=== PATIENT | female | born 1985 | race Caucasian/White ===

== ENCOUNTER 2019-06-07 16:04 | Inpatient (IN) ==
[2019-06-07] MEDS ORDERED: KETOROLAC 30 MG/ML VIAL IV STA (16:18)
[2019-06-07] MEDS ORDERED: SODIUM CHLORIDE 0.9% 1000ML 1,000 ML IV ONE (16:18)
[2019-06-07 17:10] LABS: Basophils # (auto) 0.03 K/uL (0-0.2); Basophils % (auto) 0.3 %; Eosinophils % (auto) 1.7 %; Hemoglobin 11.7 g/dL (12.0-16.0); Immature Granulocytes # (auto) 0.04 K/uL (0.00-0.02); Immature Granulocytes % (auto) 0.3 %; Lymphocytes # (auto) 4.89 K/uL (1.2-3.4); Lymphocytes % (auto) 41.7 %; Mean Corpuscular Hgb Conc 34.4 g/dL (32-36); Monocytes % (auto) 4.3 %; Neutrophils # (auto) 6.06 K/uL (1.4-6.5); Neutrophils % (auto) 51.7 %; Platelet Count 262 K/uL (130-400); RDW Coefficient of Variation 13.3 % (11.5-14.5); RDW Standard Deviation 43.5 fL (36.4-46.3); Red Blood Count 3.82 M/uL (4.2-5.4); White Blood Count 11.72 K/uL (4.8-10.8)
[2019-06-07 17:16] LABS: Appearance Urine Cloudy (Clear); Bilirubin Urine Negative (Negative); Blood Urine 3+ (Negative); Color Urine Yellow; Glucose Urine UA Negative (Negative); Ketones Urine Negative (Negative); Leukocyte Esterase Urine 2+ (Negative); Nitrite Urine Negative (Negative); Protein Urine Negative (Negative); Specific Gravity Urine 1.015 (1.000-1.030); Urobilinogen Urine Negative (Negative); pH Urine 5.5 (4.5-7.5)
--- NOTE | 2019-06-07 17:18 | XRay Report ---
KUB CLINICAL HISTORY: Right flank pain. FINDINGS: An AP supine abdominal radiograph is obtained. No prior studies are available for compariso n at the time of dictation. There is a nonobstructed abdominal bowel gas pattern. Cholecystectomy cli ps are seen in the right upper quadrant. An intrauterine device is noted in the pelvis. There are no abnormal abdominal calcifications. The bony structures appear intact. IMPRESSION: No acute abnormality is identified. Electronically signed by: Preet Brantley M.D. 06/07/2019 5:17 PM
[2019-06-07 17:22] LABS: Albumin Level 3.4 gm/dl (3.4-5.0); BUN Creatinine Ratio 23.3 (10-20); Calcium 8.8 mg/dl (8.5-10.1); Creatinine Clr Calc Pharmacy 74.9 ml/min; Est GFR (African American) 118.6; Est GFR (Non-African American) 102.3; Potassium 3.4 mmol/L (3.5-5.1)
[2019-06-07 17:25] LABS: Albumin Globulin Ratio 1.1 (0.9-2); Bilirubin,Total 0.1 mg/dl (0.2-1); Globulin 3.2 gm/dl (2.5-4.0); Total Protein 6.6 gm/dl (6.4-8.2)
[2019-06-07 17:36] LABS: Bacteria Urine 1+ (Negative)
[2019-06-07 17:37] LABS: Calcium Oxalate Crystals Urine Present (None Prsent); Epithelial Cell Urine 20-30 /lpf (0-5)
--- NOTE | 2019-06-07 18:13 | Emergency Department Note ---
Entered by Lesley Barba acting as a scribe for History of Present Illness General Chief complaint: Kidney Stone Stated complaint: KIDNEY STONE Time Seen by Provider: 06/07/19 16:10 Source: patient History of Present Illness Onset (ago): day(s) (11) Location: abdomen Radiation: flank Severity: similar to prior episodes Maximum Pain Intensity: 10 Current Pain Intensity: 10 Quality: + sharp Associated symptoms: + denies other symptoms (denies vaginal bleeding or discharge), + nausea/vomiting and + other (hematauria, decresaed urine output ) The patient is a 33 year old female who presents to the Emergency Room with complaints of sharp left flank pain that started 11 days ago when she was diagnosed with a kidney stone at [facility]. She stated that she had a CT scan done on this date, and she was told she had a 5-8mm kidney stone. She has been trying to pass the stone since then, but is still experiencing pain in her left flank. The patient reports intermittent vomiting for the past week. She also complains of decreased urination with hematuria, but denies burning. She has an extensive history of kidney stones, and stated that this is her . She notes that the pain feels very similar to her prior kidney stones, but she is having trouble passing this one. She was prescribed Vicodin at her last hospital visit, but she finished her medication and is currently not taking any pain medicine. The patient states that she does have chronic diarrhea, and had a colonoscopy done on May 14. She notes that she usually has a high white blood cell count and has a history of gallbladder removal. The patient denies vaginal bleeding or discharge, and reports she has no chance of . She was seen by her associate software developer today and sent here for the emergency department for further evaluation. Home Medications Home Medications Medication Instructions Recorded Confirmed Type levonorgestrel 20 mcg/24 hours (5 1 device IU DIRECTED ea 04/22/19 06/07/19 History yrs) 52 mg intrauterine device loratadine 10 mg capsule 10 mg PO DAILY cap 04/22/19 06/07/19 History topiramate 50 mg tablet 50 mg PO BID tab 04/22/19 06/07/19 History biotin 10,000 mcg capsule 10,000 mcg PO DAILY cap 06/07/19 06/07/19 History cholecalciferol (vitamin D3) 1,000 1,000 units PO DAILY 06/07/19 06/07/19 History unit capsule doxycycline hyclate 50 mg capsule 50 mg PO BID 06/07/19 06/07/19 History finasteride 5 mg tablet See Rx Instructions PO DAILY tab 06/07/19 06/07/19 History potassium chloride ER 10 mEq 10 meq PO BID 06/07/19 06/07/19 History tablet,extended release Allergies Allergy/AdvReac Type Severity Reaction Status Date / Time amoxicillin AdvReac Unknown Unverified 06/07/19 17:15 Past Med/Surg History Medical History Current every day smoker (Chronic) Kidney stones (Chronic) Reactive depression (situational) (Chronic) Migraine Surgical History Hx of cholecystectomy Social History Feels Safe at Home: Yes Smoking Status: Current every day smoker Review of Systems See HPI for pertinent positives & negatives. and A total of 10 systems reviewed and were otherwise negative Physical Exam Vital Signs Vital Signs - 24 hr 06/07/19 16:06 06/07/19 17:57 06/07/19 19:14 Temperature 36.7 C Temperature Source Oral Sepsis Recent Fever Within 48 Hours No Sepsis Action Taken by Nursing No Action Required Pulse Rate 95 H Pulse Rate [Right Finger] 61 70 Pulse Rhythm Regular Pulse Rhythm [Right Finger] Regular Regular Pulse Strength Normal Pulse Strength [Right Finger] Normal Normal Respiratory Rate 20 16 18 Respiratory Effort / Characteristics Non-Labored Spontaneous Non-Labored Spontaneous Non-Labored Respiratory Depth Normal Normal Normal Respiratory Pattern Regular Regular Regular Blood Pressure 120/77 Blood Pressure [Right Arm] 105/58 L 110/68 Blood Pressure Mean 91 Blood Pressure Mean [Right Arm] 73 82 Blood Pressure Position Sitting Blood Pressure Position [Right Arm] Lying Lying Pulse Oximetry 98 100 100 Oxygen Delivery Method Room Air Room Air Room Air Constitutional: Vital signs reviewed. Eyes: Pupils are equal round reactive to light. Conjunctiva are noninjected. ENT: Pharynx is clear without erythema or exudate. Mucous membranes are moist. Neck supple without meningeal signs. Respiratory: Clear to auscultation bilaterally. Breath sounds are equal bilaterally. Cardiovascular: Regular rate and rhythm. No rubs or gallops. GI: Soft, nondistended and nontender. Bowel sounds are present. Musculoskeletal: Mild left CVA tenderness. No peripheral edema. Integumentary: No cyanosis. Neurological: The patient is awake and alert. No focal deficits. Psychiatric: Normal affect. Course 161: Past medical records reviewed. The patient was evaluated in room B03B. A complete history and physical exam was performed. 174: I rechecked on the patient, who stated that she feels much better. She is comfortable with a fem cath for a sterile UA. 180: I received the patient medical records from her visit at [facility]. She had a CT of the abdomen done on May 27, which showed a 5.6 mm proximal left ureteral stone with mild hydronephrosis. 1841: I checked on the patient who is having pain again. The repeat UA shows signs of infection. 1846: I spoke to Dr. Gordillo in urology, who stated that he will evaluate the patient during her hospitalization. No acute intervention. The patient verbally expressed understanding and agreement of the treatment plan. The patient will be evaluated for further treatment. 1940:Dr. Ritchie requested a CT of the abdomen and pelvis. 1944: I talked to the patient about the CT scan, which was requested by inpatient team. She is agreeable. Administered Medications Discontinued Medications Sodium Chloride (Nss 1000ml) 1,000 mls @ 999 mls/hr IV .Q1H1M ONE Stop: 06/07/19 17:18 Last Infusion: 06/07/19 17:58 Dose: 0 mls/hr Documented by: [id number] Admin: 06/07/19 16:53 Dose: 999 mls/hr Documented by: [id number] Ceftriaxone Sodium (Rocephin) 2,000 mg in 70 mls @ 140 mls/hr IV NOW STA Stop: 06/07/19 19:11 Last Infusion: 06/07/19 19:52 Dose: 0 mls/hr Documented by: [id number] Admin: 06/07/19 19:13 Dose: 140 mls/hr Documented by: [id number] Ketorolac Tromethamine (Toradol) 10 mg IV NOW STA Stop: 06/07/19 16:19 Last Admin: 06/07/19 16:53 Dose: 10 mg Documented by: [id number] Morphine Sulfate (Morphine Sulfate) 2 mg IV NOW STA Stop: 06/07/19 18:43 Last Admin: 06/07/19 19:13 Dose: 2 mg Documented by: [id number] Ondansetron HCl (Zofran) 4 mg IV NOW STA Stop: 06/07/19 18:43 Last Admin: 06/07/19 19:13 Dose: 4 mg Documented by: [id number] Medical Decision Making Differential Diagnosis Differential diagnosis includes: renal colic, hydronephrosis, UTI, CARIE, pyelonephritis Medical Records Attestation: I reviewed the patient's medical records. I did perform a limited focused review of portions of the patient's old chart on the electronic medical record. The patient was seen by Dr. Parnell of nephrology today. He discussed the possibility of diuretic to lower urinary calcium. The patient chose to increase her free water intake. Home Medications Current Medication List: was personally reviewed by me Laboratory Data Attestation: I reviewed the patient's lab results. Result diagrams: 06/07/19 16:51 06/07/19 16:51 Lab Results 06/07/19 06/07/19 06/07/19 Range/Units 16:40 16:51 16:51 WBC 11.72 H (4.8-10.8) K/uL RBC 3.82 L (4.2-5.4) M/uL Hgb 11.7 L (12.0-16.0) g/dL Hct 34.0 L (37-47) % MCV 89.0 (80-100) fL MCH 30.6 (25-34) pg MCHC 34.4 (32-36) g/dL RDW Std Deviation 43.5 (36.4-46.3) fL RDW Coeff of Melquiades 13.3 (11.5-14.5) % Plt Count 262 (130-400) K/uL MPV 9.0 (7.4-10.4) fL Immature Gran % (Auto) 0.3 % Neut % (Auto) 51.7 % Lymph % (Auto) 41.7 % Gilliam % (Auto) 4.3 % Eos % (Auto) 1.7 % Baso % (Auto) 0.3 % Immature Gran # (Auto) 0.04 H (0.00-0.02) K/uL Neut # (Auto) 6.06 (1.4-6.5) K/uL Lymph # (Auto) 4.89 H (1.2-3.4) K/uL Gilliam # (Auto) 0.50 (0.11-0.59) K/uL Eos # (Auto) 0.20 (0-0.5) K/uL Baso # (Auto) 0.03 (0-0.2) K/uL Sodium 140 (136-145) mmol/L Potassium 3.4 L (3.5-5.1) mmol/L Chloride 113 H (98-107) mmol/L Carbon Dioxide 21 (21-32) mmol/L Anion Gap 7.0 (3-11) BUN 18 (7-18) mg/dl Creatinine 0.76 (0.6-1.2) mg/dl Est Cr Clr Drug Dosing 74.9 ml/min Est GFR ( Amer) 118.6 Est GFR (Non-Af Amer) 102.3 BUN/Creatinine Ratio 23.3 H (10-20) Glucose 81 (70-99) mg/dl Calcium 8.8 (8.5-10.1) mg/dl Total Bilirubin 0.1 L (0.2-1) mg/dl AST 9 L (15-37) U/L ALT 12 (12-78) U/L Alkaline Phosphatase 74 (45-117) U/L Total Protein 6.6 (6.4-8.2) gm/dl Albumin 3.4 (3.4-5.0) gm/dl Globulin 3.2 (2.5-4.0) gm/dl Albumin/Globulin Ratio 1.1 (0.9-2) Urine Color Yellow Urine Appearance Cloudy A (Clear) Urine pH 5.5 (4.5-7.5) Ur Specific [place] 1.015 (1.000-1.030) Urine Protein Negative (Negative) Urine Glucose (UA) Negative (Negative) Urine Ketones Negative (Negative) Urine Blood 3+ H (Negative) Urine Nitrite Negative (Negative) Urine Bilirubin Negative (Negative) Urine Urobilinogen Negative (Negative) Ur Leukocyte Esterase 2+ H (Negative) Urine WBC (Auto) (0-5) /hpf Urine RBC (Auto) (0-4) /hpf U Hyaline Cast (Auto) (0-5) /lpf U Epithel Cells (Auto) (0-5) /lpf Urine Bacteria (Auto) (Negative) Urine RBC 10-30 H (0-4) /hpf Urine WBC 10-30 H (0-5) /hpf Ur Epithelial Cells 20-30 H (0-5) /lpf Calcium Oxalate Crystal Present A (None Prsent) Urine Bacteria 1+ H (Negative) POC Ur Test (NEG) 06/07/19 06/07/19 Range/Units 17:10 18:03 WBC (4.8-10.8) K/uL RBC (4.2-5.4) M/uL Hgb (12.0-16.0) g/dL Hct (37-47) % MCV (80-100) fL MCH (25-34) pg MCHC (32-36) g/dL RDW Std Deviation (36.4-46.3) fL RDW Coeff of Melquiades (11.5-14.5) % Plt Count (130-400) K/uL MPV (7.4-10.4) fL Immature Gran % (Auto) % Neut % (Auto) % Lymph % (Auto) % Gilliam % (Auto) % Eos % (Auto) % Baso % (Auto) % Immature Gran # (Auto) (0.00-0.02) K/uL Neut # (Auto) (1.4-6.5) K/uL Lymph # (Auto) (1.2-3.4) K/uL Gilliam # (Auto) (0.11-0.59) K/uL Eos # (Auto) (0-0.5) K/uL Baso # (Auto) (0-0.2) K/uL Sodium (136-145) mmol/L Potassium (3.5-5.1) mmol/L Chloride (98-107) mmol/L Carbon Dioxide (21-32) mmol/L Anion Gap (3-11) BUN (7-18) mg/dl Creatinine (0.6-1.2) mg/dl Est Cr Clr Drug Dosing ml/min Est GFR ( Amer) Est GFR (Non-Af Amer) BUN/Creatinine Ratio (10-20) Glucose (70-99) mg/dl Calcium (8.5-10.1) mg/dl Total Bilirubin (0.2-1) mg/dl AST (15-37) U/L ALT (12-78) U/L Alkaline Phosphatase (45-117) U/L Total Protein (6.4-8.2) gm/dl Albumin (3.4-5.0) gm/dl Globulin (2.5-4.0) gm/dl Albumin/Globulin Ratio (0.9-2) Urine Color Yellow Urine Appearance Cloudy A (Clear) Urine pH 5.5 (4.5-7.5) Ur Specific [place] 1.026 (1.000-1.030) Urine Protein 1+ H (Negative) Urine Glucose (UA) Negative (Negative) Urine Ketones 1+ H (Negative) Urine Blood 3+ H (Negative) Urine Nitrite Negative (Negative) Urine Bilirubin Negative (Negative) Urine Urobilinogen Negative (Negative) Ur Leukocyte Esterase 2+ H (Negative) Urine WBC (Auto) >30 H (0-5) /hpf Urine RBC (Auto) >30 H (0-4) /hpf U Hyaline Cast (Auto) 1-5 (0-5) /lpf U Epithel Cells (Auto) 20-30 H (0-5) /lpf Urine Bacteria (Auto) Negative (Negative) Urine RBC (0-4) /hpf Urine WBC (0-5) /hpf Ur Epithelial Cells (0-5) /lpf Calcium Oxalate Crystal (None Prsent) Urine Bacteria (Negative) POC Ur Test NEG (NEG) Imaging Data Radiologist's Impression: Radiology results as stated below per my review and the radiologist's interpretation: CT SCAN OF THE ABDOMEN AND PELVIS WITHOUT IV CONTRAST CLINICAL HISTORY: Left flank pain. COMPARISON STUDY: KUB dated 06/07/2019. TECHNIQUE: CT scan of the abdomen and pelvis is performed from the lung bases to the proximal femora. Images are reviewed in the axial, sagittal, and coronal planes. IV contrast was not administered for this examination. A dose lowering t echnique was utilized adhering to the principles of ALARA. CT DOSE: 277.54 mGycm FINDINGS: Lung bases: The heart is normal in size and without pericardial effusion. The lung bases are clear. Liver: The unenhanced liver is normal in size, contour, and attenuation. There is no intrahepatic biliary ductal dilatation. Gallbladder: Surgically absent noting clips in the gallbladder fossa. Spleen: Normal in size and attenuation. Pancreas: Unremarkable. Adrenal glands: Unremarkable. Kidneys: The unenhanced kidneys are normal in size. There is an 8 mm obstructing calculus identified in the distal left ureter on image #251. This is located approximately 5.5 cm above the bladder. An additional 3 mm calculus is present in the left ureter more proximally at the level of the pelvic inlet seen on image #235. This causes only minimal left-sided hydronephrosis. No additional renal calculi are identified. There is no right-sided hydronephrosis. There is no evidence of contour deforming renal mass lesion. Abdominal vasculature: The abdominal aorta is normal in course and caliber. Bowel: No obstruction is seen. There is fluid noted throughout the colon. There is no significant colonic wall thickening or pericolonic inflammation. There is also fluid within normal caliber small bowel loops. The appendix is well- visualized and normal. Peritoneum: There is no intraperitoneal free air or abdominal ascites. There is a fat-containing umbilical hernia. Lymphadenopathy: None. Pelvic viscera: The bladder is decompressed and grossly unremarkable. The uterus and adnexa are normal as imaged noting an intrauterine device in place. Skeletal structures: A bone island is noted in the right aspect of the pubic symphysis. No lytic or blastic lesions are seen. IMPRESSION: 1. There is an 8 mm obstructing calculus within the distal left ureter as detailed above causing minimal left-sided hydronephrosis. 2. There is an additional 3 mm calculus within the left ureter more proximally. 3. No additional calculi are identified in either kidney. 4. There is fluid present throughout the small bowel and colon. Correlate clinically for evidence of a mild nonspecific enterocolitis. No bowel o bstruction is seen. 5. Additional findings as above. Electronically signed by: Preet Brantley M.D. 06/07/2019 8:35 PM KUB CLINICAL HISTORY: Right flank pain. FINDINGS: An AP supine abdominal radiograph is obtained. No prior studies are available for comparison at the time of dictation. There is a nonobstructed abdominal bowel gas pattern. Cholecystectomy clips are seen in the right upper quadrant. An intrauterine device is noted in the pelvis. There are no abnormal abdominal calcifications. The bony structures appear intact. IMPRESSION: No acute abnormality is identified. Electronically signed by: Preet Brantley M.D. 06/07/2019 5:17 PM Blood Pressure Blood Pressure Findings: Normal blood pressure Blood Pressure Disposition: did not require urgent referral MDM Narrative I did evaluate the patient as noted above. The patient is presenting with left flank pain. She was seen at a different hospital and diagnosed with a kidney stone. She has had multiple kidney stones. She still has intermittent pain and vomiting since diagnosis and has not passed a stone as far she knows. She was sent here by her associate software developer office today. I did obtain records from [facility]. She does have a 5.6 mm left proximal ureteral stone with mild hydronephrosis. IV access was established. I did treat the patient with normal saline IV and Toradol 10 mg IV. I did order and personally reviewed the images of the patient's KUB x-ray as described above. No stone is noted. I did order a urine analysis. She does have signs of infection. Because there were epithelial cells I did recommend repeating it with a straight cath. She was in agreement. Thank cath was performed and another urine was obtained which showed infection. I did treat her with ceftriaxone IV. I did order and review the patient's blood work as noted in the electronic medical record. Her white count slightly elevated. Creatinine is normal. Potassium is 3.4. I did discuss the test results with the patient. She states her pain was improved earlier but then is starting to come back. She was given IV morphine and Zofran. I did rec ommend hospitalization. I did discuss case with the urologist to did not feel she needed an emergent stent. He did agree with hospitalization. I did speak to the hospitalist to recommend that we obtain a CT scan. The patient was amenable to this. I did order a CT of the abdomen and pelvis. I did review the images myself as well as the radiology report as described above. She does have hydronephrosis and to proximal kidney stones on the left side. Impression & Plan Renal colic, UTI (urinary tract infection), Vomiting, Obstructed, uropathy Discharge Plan Visit Data Chief Complaint: Kidney Stone Stated Complaint: KIDNEY STONE ED Provider: Lon Oliver Discharge Problem: Renal colic, UTI (urinary tract infection), Vomiting, Obstructed, uropathy Discharge Instructions Interventions: ED Discharge Assessment Last Done: 06/07/19 22:11 Discharge Problem: UTI (urinary tract infection) Qualifiers: Urinary tract infection type: site unspecified Hematuria presence: with hematuria Qualified Code(s): N39.0 - Urinary tract infection, site not specified Vomiting Qualifiers: Vomiting type: unspecified Vomiting Intractability: intractable Nausea presence: unspecified Qualified Code(s): R11.10 - Vomiting, unspecified The scribe's documentation has been prepared under my direction and personally reviewed by me in its entirety. I confirm that the note above accurately reflects all work, treatment, procedures, and medical decision making performed by me.
[2019-06-07 18:23] LABS: Appearance Urine Cloudy (Clear); Bacteria Urine Automated Negative (Negative); Bilirubin Urine Negative (Negative); Blood Urine 3+ (Negative); Color Urine Yellow; Epithelial Cell Urine Auto 20-30 /lpf (0-5); Glucose Urine UA Negative (Negative); Ketones Urine 1+ (Negative); Leukocyte Esterase Urine 2+ (Negative); Nitrite Urine Negative (Negative); Protein Urine 1+ (Negative); RBC Urine Automated >30 /hpf (0-4); Specific Gravity Urine 1.026 (1.000-1.030); Urobilinogen Urine Negative (Negative); WBC Urine Automated >30 /hpf (0-5); pH Urine 5.5 (4.5-7.5)
[2019-06-07] MEDS ORDERED: MoRPHine SULFATE 2 MG/ML CARP IV STA (18:42)
[2019-06-07] MEDS ORDERED: cefTRIAXone SODIUM 2,000 MG/70 ML BAG IV STA (18:42)
[2019-06-07] MEDS ORDERED: ONDANSETRON INJ 2 MG/ML 2 ML VIAL IV STA (18:42)
--- NOTE | 2019-06-07 20:37 | CT Scan Report ---
CT SCAN OF THE ABDOMEN AND PELVIS WITHOUT IV CONTRAST CLINICAL HISTORY: Left flank pain. COMPARISON STUDY: KUB dated 06/07/2019. TECHNIQUE: CT scan of the abdomen and pelvis is performed from the lung bases to the proximal femora. Images are reviewed in the axial, sagittal, and coronal planes. IV contrast was not administered for this examination. A dose lowering technique was utilized adhering to the principles of ALARA. CT DOSE: 277.54 mGycm FINDINGS: Lung bases: The heart is normal in size and without pericardial effusion. The lung bases are clear. Liver: The unenhanced liver is normal in size, contour, and attenuation. There is no intrahepatic lisa iary ductal dilatation. Gallbladder: Surgically absent noting clips in the gallbladder fossa. Spleen: Normal in size and attenuation. Pancreas: Unremarkable. Adrenal glands: Unremarkable. Kidneys: The unenhanced kidneys are normal in size. There is an 8 mm obstructing calculus identified in the distal left ureter on image #251. This is located approximately 5.5 cm above the bladder. An a dditional 3 mm calculus is present in the left ureter more proximally at the level of the pelvic inle t seen on image #235. This causes only minimal left-sided hydronephrosis. No additional renal calculi are identified. There is no right-sided hydronephrosis. There is no evidence of contour deforming re nal mass lesion. Abdominal vasculature: The abdominal aorta is normal in course and caliber. Bowel: No obstruction is seen. There is fluid noted throughout the colon. There is no significant col onic wall thickening or pericolonic inflammation. There is also fluid within normal caliber small bow el loops. The appendix is well-visualized and normal. Peritoneum: There is no intraperitoneal free air or abdominal ascites. There is a fat-containing umbi lical hernia. Lymphadenopathy: None. Pelvic viscera: The bladder is decompressed and grossly unremarkable. The uterus and adnexa are jessica l as imaged noting an intrauterine device in place. Skeletal structures: A bone island is noted in the right aspect of the pubic symphysis. No lytic or b lastic lesions are seen. IMPRESSION: 1. There is an 8 mm obstructing calculus within the distal left ureter as detailed above causing mini mal left-sided hydronephrosis. 2. There is an additional 3 mm calculus within the left ureter more proximally. 3. No additional calculi are identified in either kidney. 4. There is fluid present throughout the small bowel and colon. Correlate clinically for evidence of a mild nonspecific enterocolitis. No bowel obstruction is seen. 5. Additional findings as above. Electronically signed by: Preet Brantley M.D. 06/07/2019 8:35 PM
[2019-06-07] MEDS ORDERED: ACETAMINOPHEN 500 MG TAB PO SCH (21:45)
[2019-06-07] MEDS ORDERED: TRAMADOL HCL 50 MG TABLET PO SCH (21:45)
--- NOTE | 2019-06-07 22:06 | History & Physical Report ---
Date of Service June 07, 2019 Assessment & Plan (1) Obstructed, uropathy: Ms. Gutierrez is a 33yo female with a PMHx of recurrent calcium oxalate nephrolithiasis, migraines, seasonal allergies and undiagnosed recurrent diarrhea who was admitted for an obstructing kidney stone with hydronephrosis, and possible pyelonephritis. Acute Uropathy/Nephrolithiasis -Pt originally seen at [facility] on 05/25-CT there noted nonobstructing ~5-8mm kidney stone with hydronephrosis -KUB 06/07: unremarkable; no stones noted. -CT 06/07- 8mm obstructing calculus within the distal left ureter, 3mm stone in proximal ureter, minimal left-sided hydronephrosis. Also noted fluid in small b owel and colon. -UA on admission with blood, leukocyte esterase, WBCs. Urine Cx pending. -Pt afebrile, nontachycardic. However, WBC increased >27014 -will make NPO after midnight and consult urology -will start on NSS @150mls/hr -will start treatment with Rocephin for possible pyelonephritis -will continue tamsulosin -will treat pain with scheduled tylenol 1000mg q8h, PRN tramadol 50mg q6h for moderate pain and PRN Dilaudid 0.5mg q3h for severe pain. Hypokalemia -mildly decreased at 3.4 -will treat with one dose of 20mEq PO -continue home Potassium Chloride 20mEq BID daily -continue to monitor and replete as needed Hx of recurrent diarrhea -Pt states she had recent colonoscopy as part of workup -States she has upcoming appointment to followup as an outpt -Hypokalemia likely related -close pcp followup recommended Hx of Migraines -continue home topiramate Hx of environmental allergies -given pt's current mild congestion, continue home loratidine Hx of hair loss -continue home finasteride, biotin Hx of Acne on back -continue home doxycycline 50mg BID Health maintenance -continue home Vit D3 FEN/GI: NSS@150, NPO after midnight CODE STATUS: Full DVT proph: SCDs Dispo: Med/Surg History of Present Illness Primary Care Provider: Zach Phan Ms. Gutierrez is a 33yo with a Hx of recurrent kidney stones who presents to [facility] ED after being sent by her desk pen set assembler Dr. Parnell emergently to be seen by urology. She states she had a kidney stone about May 25 when she presented to [facility] and it was noted on CT. She was sent home with Vicodin, Tamsulosin, Keflex and in the hopes that she would pass it. She states she did not however, and instead of urinating more frequently on the Flomax like she usually would, she noticed that she was actually urinating less. Also noted hematuria over the weekend but no dysuria. Denies ever having fevers, chills, or night sweats. Of note, pt states this will be her 19th stone. States she has had 4 lithotripsies in the past and would like to avoid stents as she believes stents are more painful than having the kidney stone. States she had a stent the first time. PMHx: Recurrent kidney stones, Migraines, Acne on Back, undiagnosed recurrent diarrhea, environmental allergies, Hair loss. 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 1/4ppd smoker for about 13 years, no alcohol or recreational drug use. ED Course: Afebrile, nontachycardic, WBC>65740, KUB:unremarkable, CT showing 8mm obstructing and 3mm nonobstructing stone with mild hydronephrosis, fluid in small bowel and colon. s/p IV morphine 2mgx1 , 15mg IV Toradolx1, 1 dose of Rocephin. Allergies Allergy/AdvReac Type Severity Reaction Status Date / Time amoxicillin AdvReac Unknown Unverified 06/07/19 17:15 Home Medications Home Medications Medication Instructions Recorded Confirmed Type levonorgestrel 20 mcg/24 hours (5 1 device IU DIRECTED ea 04/22/19 06/07/19 History yrs) 52 mg intrauterine device loratadine 10 mg capsule 10 mg PO DAILY cap 04/22/19 06/07/19 History topiramate 50 mg tablet 50 mg PO BID tab 04/22/19 06/07/19 History biotin 10,000 mcg capsule 10,000 mcg PO DAILY cap 06/07/19 06/07/19 History cholecalciferol (vitamin D3) 1,000 1,000 units PO DAILY 06/07/19 06/07/19 History unit capsule doxycycline hyclate 50 mg capsule 50 mg PO BID 06/07/19 06/07/19 History finasteride 5 mg tablet See Rx Instructions PO DAILY tab 06/07/19 06/07/19 Hi story potassium chloride ER 10 mEq 10 meq PO BID 06/07/19 06/07/19 History tablet,extended release Past Med/Surg History Medical History Current every day smoker (Chronic) Kidney stones (Chronic) Reactive depression (situational) (Chronic) Migraine Surgical History Hx of cholecystectomy Social History Preferred Language: Andorran Communication Ability: Effective Field Traffic Investigator Required: No Beliefs That Will Affect Care: None Current Living Situation: Significant Other Current Living Situation Comment: Lives with boyfriend and 3 kids. Other Information That Helps Us Care for You: No Feels Safe at Home: Yes Safety Concerns: Feels Safe At This Time Smoking Status: Current every day smoker Tobacco Type: cigarettes ; Do You Dip or Chew Tobacco: No ; Second Hand Exposure: No ; Tobacco Cessation Education Requested by Patient: No Hx Alcohol Use: No Hx Substance Use: No Review of Systems Constitutional: no fever, no chills and no sweats Eyes: no worsening vision Ear, Nose, Mouth, Throat: + nasal congestion; no sore throat Respiratory: no cough, no dyspnea and no dyspnea on exertion Cardiovascular: no chest pain, no dyspnea, no palpitations, no lightheadedness and no edema Gastrointestinal: + nausea and + diarrhea/loose stools; no vomiting and no co nstipation Genitourinary: + hematuria and + flank pain; no dysuria Musculoskeletal: + back pain Integumentary: + acne Neurologic: no unsteadiness, no tingling, no numbness, no headache(s) and no confusion Physical Exam Constitutional: + thin Eyes: PERRL, conjunctivae normal, anicteric sclerae ENMT: external ear and nose normal, oropharynx normal Neck: normal visual inspection Respiratory: normal respiratory effort, lungs clear to auscultation Auscultation: + diminished lung sounds Cardiovascular: RRR, no murmur, no edema Heart Sounds: normal S1 and normal S2 Extremities: no calf tenderness and no edema Gastrointestinal (Abdomen): Inspection/Auscultation: abdomen normal to inspection Percussion/Palpation: + abdomen tender (in LLQ near groin); no guarding and no hepatosplenomegaly Skin: + rash (acne noted on back) and + hair thinning Neurologic: PERRL, EOMI, accommodation nl, no face palsy, no dysarthria Genitourinary: + CVA tenderness (on left) Results & Data Vital Signs (Past 12 Hours) Vital Signs Temp Pulse Pulse Resp BP BP Pulse Ox 06/07/19 21:40 59 L 93/58 L 98 06/07/19 19:14 70 18 110/68 100 06/07/19 17:57 61 16 105/58 L 100 06/07/19 16:06 36.7 C 95 H 20 120/77 98 Laboratory Results Laboratory Results - last 24 hr 06/07/19 06/07/19 06/07/19 16:40 16:51 16:51 WBC 11.72 H RBC 3.82 L Hgb 11.7 L Hct 34.0 L MCV 89.0 MCH 30.6 MCHC 34.4 RDW Std Deviation 43.5 RDW Coeff of Melquiades 13.3 Plt Count 262 MPV 9.0 Immature Gran % (Auto) 0.3 Neut % (Auto) 51.7 Lymph % (Auto) 41.7 Culberson % (Auto) 4.3 Eos % (Auto) 1.7 Baso % (Auto) 0.3 Immature Gran # (Auto) 0.04 H Neut # (Auto) 6.06 Lymph # (Auto) 4.89 H Culberson # (Auto) 0.50 Eos # (Auto) 0.20 Baso # (Auto) 0.03 Sodium 140 Potassium 3.4 L Chloride 113 H Carbon Dioxide 21 Anion Gap 7.0 BUN 18 Creatinine 0.76 Est Cr Clr Drug Dosing 74.9 Est GFR ( Amer) 118.6 Est GFR (Non-Af Amer) 102.3 BUN/Creatinine Ratio 23.3 H Glucose 81 Calcium 8.8 Total Bilirubin 0.1 L AST 9 L ALT 12 Alkaline Phosphatase 74 Total Protein 6.6 Albumin 3.4 Globulin 3.2 Albumin/Globulin Ratio 1.1 Urine Color Yellow Urine Appearance Cloudy A Urine pH 5.5 Ur Specific Branch 1.015 Urine Protein Negative Urine Glucose (UA) Negative Urine Ketones Negative Urine Blood 3+ H Urine Nitrite Negative Urine Bilirubin Negative Urine Urobilinogen Negative Ur Leukocyte Esterase 2+ H Urine WBC (Auto) Urine RBC (Auto) U Hyaline Cast (Auto) U Epithel Cells (Auto) Urine Bacteria (Auto) Urine RBC 10-30 H Urine WBC 10-30 H Ur Epithelial Cells 20-30 H Calcium Oxalate Crystal Present A Urine Bacteria 1+ H POC Ur Test 06/07/19 06/07/19 17:10 18:03 WBC RBC Hgb Hct MCV MCH MCHC RDW Std Deviation RDW Coeff of Melquiades Plt Count MPV Immature Gran % (Auto) Neut % (Auto) Lymph % (Auto) Culberson % (Auto) Eos % (Auto) Baso % (Auto) Immature Gran # (Auto) Neut # (Auto) Lymph # (Auto) Culberson # (Auto) Eos # (Auto) Baso # (Auto) Sodium Potassium Chloride Carbon Dioxide Anion Gap BUN Creatinine Est Cr Clr Drug Dosing Est GFR ( Amer) Est GFR (Non-Af Amer) BUN/Creatinine Ratio Glucose Calcium Total Bilirubin AST ALT Alkaline Phosphatase Total Protein Albumin Globulin Albumin/Globulin Ratio Urine Color Yellow Urine Appearance Cloudy A Urine pH 5.5 Ur Specific Branch 1.026 Urine Protein 1+ H Urine Glucose (UA) Negative Urine Ketones 1+ H Urine Blood 3+ H Urine Nitrite Negative Urine Bilirubin Negative Urine Urobilinogen Negative Ur Leukocyte Esterase 2+ H Urine WBC (Auto) >30 H Urine RBC (Auto) >30 H U Hyaline Cast (Auto) 1-5 U Epithel Cells (Auto) 20-30 H Urine Bacteria (Auto) Negative Urine RBC Urine WBC Ur Epithelial Cells Calcium Oxalate Crystal Urine Bacteria POC Ur Test NEG Medications Administered Home Medications levonorgestrel 20 mcg/24 hours (5 yrs) 52 mg intrauterine device 1 device IU DIRECTED ea 04/22/19 [History Confirmed 06/07/19] loratadine 10 mg capsule 10 mg PO DAILY cap 04/22/19 [History Confirmed 06/07/19] topiramate 50 mg tablet 50 mg PO BID tab 04/22/19 [History Confirmed 06/07/19] biotin 10,000 mcg capsule 10,000 mcg PO DAILY cap 06/07/19 [History Confirmed 06/07/19] cholecalciferol (vitamin D3) 1,000 unit capsule 1,000 units PO DAILY 06/07/19 [History Confirmed 06/07/19] doxycycline hyclate 50 mg capsule 50 mg PO BID 06/07/19 [History Confirmed 06/07/19] finasteride 5 mg tablet See Rx Instructions PO DAILY tab 06/07/19 [History Confirmed 06/07/19] potassium chloride ER 10 mEq tablet,extended release 10 meq PO BID 06/07/19 [ History Confirmed 06/07/19] Active Medications Doxycycline Hyclate (Vibramycin) 50 mg PO BID NORRIS Stop: 06/18/19 08:59 Finasteride (Proscar) 2.5 mg PO DAILY NORRIS Stop: 07/08/19 08:59 Hydromorphone HCl (Dilaudid) 0.5 mg IV Q3H PRN PRN Reason: Pain Stop: 06/21/19 21:33 Last Admin: 06/07/19 23:38 Dose: 0.5 mg Documented by: Ceftriaxone Sodium 1,000 mg/ (Dextrose) 60 mls @ 100 mls/hr IV Q24H NORRIS; Protocol Stop: 06/16/19 18:35 Sodium Chloride (Nss 1000ml) 1,000 mls @ 150 mls/hr IV .Q6H40M NORRIS Stop: 07/07/19 23:25 Last Admin: 06/07/19 23:38 Dose: 150 mls/hr Documented by: Acetaminophen (Ofirmev) 1,000 mg in 100 mls @ 400 mls/hr IV Q8H PRN PRN Reason: Pain Stop: 07/08/19 01:00 Loratadine (Claritin) 10 mg PO DAILY [facility] Stop: 07/08/19 08:59 Iud~Non-Formulary (Patient's Own Med) 1 ea PV UD PRN PRN Reason: .CONTRACEPTION Stop: 07/07/19 23:44 Potassium Chloride (Klor-Con M10) 10 meq PO BID [facility] Stop: 07/08/19 08:59 Tamsulosin HCl (Flomax) 0.4 mg PO QAM [facility] Stop: 07/08/19 08:59 Topiramate (Topamax) 50 mg PO BID [facility]RIS Stop: 07/08/19 08:59 Tramadol HCl (Ultram) 50 mg PO Q6H PRN PRN Reason: Pain Stop: 07/07/19 23:25 Vitamin D (Vitamin D3) 1,000 units PO DAILY [facility] Stop: 07/08/19 08:59 Supervising Physician Co-Signing Physician Notes Attending addendum: I have physically seen this patient, have supervised the medical residents activities, and agree with the H&P unless as otherwise noted. Assessment and Plan: 8 mm distal left ureteral stone with mild left hydronephrosis- N.p.o. after midnight IV fluids. Ceftriaxone 1 g IV daily. Follow urine culture and sensitivity. Acetaminophen 1 g IV every 8 hours PRN mild pain or temperature. Morphine sulfate 4 mg IV every 3 hours as needed severe pain. Consult urology. Remainder of orders and medications as noted. PG Care Time/CCT Total # of Minutes Spent Total Time Spent with Patient: Total time spent is greater than 50% in coordination of care (as documented) at patient's floor/unit and/or counseling patient: Resident Activity Tracking Resident Involvement: Resident Care Provided Care Provided: Adult Hospital Medicine
[2019-06-07] MEDS ORDERED: POTASSIUM CHLORIDE 20 MEQ TABCR PO STA (23:26)
[2019-06-07] MEDS ORDERED: TRAMADOL HCL 50 MG TABLET PO PRN (23:26)
[2019-06-07] MEDS: SODIUM CHLORIDE 0.9% 1000ML 1,000 ML IV SCH (23:38)
[2019-06-07] MEDS: HYDROmorphone INJ 0.5 MG/0.5 ML SYR IV PRN (23:38)
[2019-06-07] MEDS ORDERED: IUD PV PRN (23:45)
[2019-06-08] MEDS ORDERED: ACETAMINOPHEN 1,000 MG/100 ML VIAL IV PRN (01:01)
[2019-06-08] MEDS: HYDROmorphone INJ 0.5 MG/0.5 ML SYR IV PRN ×6 (02:33→22:06)
[2019-06-08] MEDS: SODIUM CHLORIDE 0.9% 1000ML 1,000 ML IV SCH ×3 (05:27→19:06)
[2019-06-08] MEDS: POTASSIUM CHLORIDE 10 MEQ TABCR PO SCH ×2 (08:14→20:54)
[2019-06-08] MEDS: DOXYCYCLINE HYCLATE 50 MG CAP PO SCH ×2 (08:14→20:54)
[2019-06-08] MEDS: LORATADINE 10 MG TAB PO SCH (08:14)
[2019-06-08] MEDS: TAMSULOSIN HCL 0.4 MG CAP PO SCH (08:14)
[2019-06-08] MEDS: CHOLECALCIFEROL 1,000 UNITS TAB PO SCH (08:14)
[2019-06-08] MEDS: FINASTERIDE 5 MG TAB PO SCH (08:14)
[2019-06-08] MEDS: TOPIRAMATE 50 MG TAB PO SCH ×2 (08:14→20:55)
[2019-06-08] MEDS ORDERED: NON-FORMULARY MEDICATION (Biotin 10,000 MCG) PO SCH (09:00)
--- NOTE | 2019-06-08 09:26 | Family Medicine Progress Note ---
Date of Service June 08, 2019 Assessment & Plan (1) Obstructed, uropathy: Ms. Gutierrez is a 33yo female with a PMHx of recurrent calcium oxalate nephrolithiasis, migraines, seasonal allergies and undiagnosed recurrent diarrhea who was admitted for an obstructing kidney stone with hydronephrosis, and possible pyelonephritis. Nephrolithiasis - CT abdomen 06/07: 8mm obstructing calculus within the distal left ureter, 3mm stone in proximal ureter, minimal left-sided hydronephrosis. Also noted fluid in small bowel and colon. Pt originally seen at [facility] on 05/25-CT there noted nonobstructing ~5-8mm kidney stone with hydronephrosis. - UA on admission with blood, leukocyte esterase, WBCs. Urine Cx pending. - Pt with leukocytosis to 11,000, not febrile, no tachycardia or tachypnea. BP hypotensive. - Currently NPO; it is possible that she may be able to pass the stone on her own with fluids, pain mgmt, and Flomax. Check KUB this afternoon. If stone has not moved, Urology plan for Cysto and Uscope tomorrow morning. - NSS @150mls/hr - Rocephin for possible pyelonephritis pending UCx - Continue tamsulosin until KUB this afternoon. - Current pain medication regimen: scheduled Tylenol 1000mg Q8H, Toradol 15mg IVQ6H PRN, Dilaudid 0.5mg IV Q3H PRN Hypokalemia - Mildly decreased at 3.4 on arrival. - Treated with one dose Potassium 20mEq PO, K now 3.6 on recheck. - Continue home Potassium Chloride 20mEq BID daily. - BMP in AM. Hx of recurrent diarrhea - Pt states she had recent colonoscopy as part of workup. - States she has upcoming appointment to followup as an outpatient. - Hypokalemia likely related to volume loss through diarrhea. Hypotension could be explained by this as well. - to followup with primary doctor and GI following discharge. Hx of Migraines - Continue home topiramate. Hx of environmental allergies - Continue home Loratidine. Hx of hair loss - Continue home Finasteride, Biotin. Hx of Acne - Continue home Doxycycline 50mg BID. Health maintenance - Continue home Vit D3. FEN/GI: NSS@150, NPO pending afternoon KUB CODE STATUS: Full Code DVT proph: SCDs Dispo: Med/Surg (2) Hypokalemia: (3) Chronic diarrhea: (4) Migraine: Supervising Physician Co-Signing Physician Notes Resident Physician Supervision Note: I independently interviewed and examined the patient and verified the pena history and physical, reviewed labs and image studies, discussed the case with the resident Dr. Dejesus and agree with the findings and care plan. Subjective No acute events since admission. Pt reports that she is in 8/10 pain so had nursing give her her PRN medications. Has a robust history of kidney stones and reports that this feels exactly the same as other incidences of kidney stones. No fevers or chills, no dysuria hematuria urinary frequency or urgency. Does report diarrhea but this is chronic for her and she follows with Dr. Grossman regarding this. Review of Systems Constitutional: no fever and no chills Respiratory: no cough, no dyspnea and no wheezing Cardiovascular: no chest pain, no palpitations and no edema Gastrointestinal: + abdominal pain (lower abdomen pain radiates from back.) and + diarrhea/loose stools; no nausea, no vomiting and no constipation Genitourinary: no dysuria, no urinary frequency, no urinary urgency and no hematuria left CVA pain that sometimes radiates around left side to the left inguinal area, 8/10 when pain medication wears off. Physical Exam Constitutional: WD/WN, vitals as above Respiratory: normal respiratory effort, lungs clear to auscultation Cardiovascular: RRR, no murmur, no edema Gastrointestinal (Abdomen): normal bowel sounds, soft, nontender, no hepatosplenomegaly Skin: no rashes, warm and dry Psychiatric: A+Ox3, euthymic affect Genitourinary: CVA tenderness left side, no suprapubic tenderness Results & Data Vital Signs (Past 12 Hours) Vital Signs Temp Pulse Resp BP Pulse Ox 06/08/19 07:07 36.7 C 71 16 94/59 L 99 06/07/19 23:25 36.3 C L 65 16 103/68 100 06/07/19 21:40 59 L 93/58 L 98 PG Care Time/CCT Total # of Minutes Spent Total Time Spent with Patient: Total time spent is greater than 50% in coordination of care (as documented) at patient's floor/unit and/or counseling patient: Resident Activity Tracking Resident Involvement: Resident Care Provided Care Provided: Adult Hospital Medicine (1) Migraine Intractability: not intractable Migraine type: unspecified Status migrainosus presence: without status migrainosus Qualified Code(s): G43.909 - Migraine, unspecified, not intractable, without status migrainosus
[2019-06-08 09:33] LABS: Basophils # (auto) 0.02 K/uL (0-0.2); Basophils % (auto) 0.2 %; Eosinophils # (auto) 0.18 K/uL (0-0.5); Eosinophils % (auto) 1.9 %; Hematocrit (blood only) 31.7 % (37-47); Hemoglobin 10.7 g/dL (12.0-16.0); Immature Granulocytes # (auto) 0.03 K/uL (0.00-0.02); Immature Granulocytes % (auto) 0.3 %; Lymphocytes # (auto) 4.21 K/uL (1.2-3.4); Lymphocytes % (auto) 44.9 %; Mean Corpuscular Hgb Conc 33.8 g/dL (32-36); Mean Corpuscular Volume 89.5 fL (80-100); Monocytes # (auto) 0.43 K/uL (0.11-0.59); Monocytes % (auto) 4.6 %; Neutrophils % (auto) 48.1 %; Platelet Count 229 K/uL (130-400); RDW Coefficient of Variation 13.3 % (11.5-14.5); RDW Standard Deviation 43.9 fL (36.4-46.3); Red Blood Count 3.54 M/uL (4.2-5.4); White Blood Count 9.37 K/uL (4.8-10.8)
--- NOTE | 2019-06-08 09:49 | Urology Consultation ---
Date of Consultation June 08, 2019 Assessment & Plan (1) Kidney stones: Distal ureteral stone. Logan. Intermit Pain. Its possible that she may be able to pass the stone on her own with fluids, pain mgmt, and Flomax. Check KUB this afternoon. If stone has not moved, will plan for Cysto and Uscope tomorrow morning. (2) Renal colic: History of Present Illness Attending Physician: Ashley Schwartz MD 33yo with a Hx of recurrent kidney stones who presents to [facility] ED after being sent by her ophthalmic technician Dr. Parnell emergently to be seen by urology. She states she had a kidney stone about May 25 when she presented to [facility] ED and it was noted on CT. She was sent home with Vicodin, Tamsulosin, Keflex and in the hopes that she would pass it. She states she did not however, and instead of urinating more frequently on the Flomax like she usually would, she noticed that she was actually urinating less. Also noted hematuria over the weekend but no dysuria. Denies ever having fevers, chills, or night sweats. Of note, pt states this will be her 19th stone. States she has had 4 lithotripsies in the past and would like to avoid stents as she believes stents are more painful than having the kidney stone. States she had a stent the first time. She currently has pain. Comes and goes. Radiates towards groin. CT Scan: 1. There is an 8 mm obstructing calculus within the distal left ureter as det abebe above causing minimal left-sided hydronephrosis. 2. There is an additional 3 mm calculus within the left ureter more proximally. Allergies Allergy/AdvReac Type Severity Reaction Status Date / Time amoxicillin AdvReac Unknown Unverified 06/07/19 17:15 Home Medications Home Medications Medication Instructions Recorded Confirmed Type levonorgestrel 20 mcg/24 hours (5 1 device IU DIRECTED ea 04/22/19 06/07/19 History yrs) 52 mg intrauterine device loratadine 10 mg capsule 10 mg PO DAILY cap 04/22/19 06/07/19 History topiramate 50 mg tablet 50 mg PO BID tab 04/22/19 06/07/19 History biotin 10,000 mcg capsule 10,000 mcg PO DAILY cap 06/07/19 06/07/19 History cholecalciferol (vitamin D3) 1,000 1,000 units PO DAILY 06/07/19 06/07/19 History unit capsule doxycycline hyclate 50 mg capsule 50 mg PO BID 06/07/19 06/07/19 History finasteride 5 mg tablet See Rx Instructions PO DAILY tab 06/07/19 06/07/19 History potassium chloride ER 10 mEq 10 meq PO BID 06/07/19 06/07/19 History tablet,extended release Patient History Medical History Current every day smoker (Chronic) Kidney stones (Chronic) Reactive depression (situational) (Chronic) Migraine Surgical History Hx of cholecystectomy Social History Preferred Language: Tuvaluan Communication Ability: Effective Feed Blender Required: No Beliefs That Will Affect Care: None Current Living Situation: Significant Other Current Living Situation Comment: Lives with boyfriend and 3 kids. Other Information That Helps Us Care for You: No Feels Safe at Home: Yes Safety Concerns: Feels Safe At This Time Smoking Status: Current every day smoker Tobacco Type: cigarettes ; Do You Dip or Chew Tobacco: No ; Second Hand Exposure: No ; Tobacco Cessation Education Requested by Patient: No Hx Alcohol Use: No Hx Substance Use: No Review of Systems Review of Systems: All systems reviewed & are unremarkable except as noted in HPI & below Physical Exam Constitutional: WD/WN, vitals as above Eyes: PERRL, conjunctivae normal, anicteric sclerae Respiratory: normal respiratory effort, lungs clear to auscultation Cardiovascular: RRR, no murmur, no edema Musculoskeletal: no cyanosis or clubbing, extremities motor strength 5/5 Skin: no rashes, warm and dry Psychiatric: A+Ox3, euthymic affect Genitourinary: no vaginal lesions, no adnexal mass Lymphatic: no cervical or axillary lymphadenopathy Results & Data Vital Signs (Past 12 Hours) Vital Signs Temp Pulse Resp BP Pulse Ox 06/08/19 07:07 36.7 C 71 16 94/59 L 99 06/07/19 23:25 36.3 C L 65 16 103/68 100
[2019-06-08 10:07] LABS: BUN Creatinine Ratio 21.6 (10-20); Calcium 8.2 mg/dl (8.5-10.1); Creatinine Clr Calc Pharmacy 96.5 ml/min; Est GFR (African American) 138.6; Est GFR (Non-African American) 119.6; Potassium 3.6 mmol/L (3.5-5.1)
[2019-06-08] MEDS ORDERED: KETOROLAC TROMETHAMINE 15 MG/ML VIAL IV PRN (11:01)
[2019-06-08] MEDS ORDERED: FAMOTIDINE 20 MG in SYRINGE 3 ML IV SCH (11:15)
[2019-06-08] MEDS ORDERED: FAMOTIDINE 20 MG in SYRINGE 3 ML IV PRN (11:45)
[2019-06-08] MEDS: FAMOTIDINE 20 MG in SYRINGE 3 ML IV SCH ×2 (12:01→20:56)
--- NOTE | 2019-06-08 15:15 | XRay Report ---
XR KUB/Abdomen 1 view CLINICAL HISTORY: Ureteral calculus COMPARISON STUDY: CT scan dated 06/07/2019, KUB dated 05/07/2019 FINDINGS: There are surgical clips within the right upper quadrant consistent with a prior cholecyste ctomy. There is no pathologic bowel dilatation. An IUD is visualized. No urinary tract calculi are vi sualized on conventional radiographic imaging. The ureteral calculi described on the recent CT scan, are not visualized. IMPRESSION: 1. Nonvisualization of the recently described left ureteral calculi (as visualized on a recent CT sca n, but nonvisible on a recent KUB) Electronically signed by: Octaviano Huerta M.D. 06/08/2019 3:13 PM
[2019-06-08] MEDS ORDERED: cefTRIAXone SODIUM 1,000 MG in DEXTROSE 5% 50 ML IV SCH (18:00)
[2019-06-09] MEDS: SODIUM CHLORIDE 0.9% 1000ML 1,000 ML IV SCH ×2 (01:58→10:49)
[2019-06-09] MEDS: HYDROmorphone INJ 0.5 MG/0.5 ML SYR IV PRN (02:04)
[2019-06-09 07:32] LABS: Basophils # (auto) 0.02 K/uL (0-0.2); Basophils % (auto) 0.2 %; Eosinophils # (auto) 0.21 K/uL (0-0.5); Eosinophils % (auto) 2.4 %; Hematocrit (blood only) 30.6 % (37-47); Hemoglobin 10.3 g/dL (12.0-16.0); Immature Granulocytes # (auto) 0.02 K/uL (0.00-0.02); Immature Granulocytes % (auto) 0.2 %; Lymphocytes # (auto) 3.39 K/uL (1.2-3.4); Lymphocytes % (auto) 38.3 %; Mean Corpuscular Hgb Conc 33.7 g/dL (32-36); Mean Platelet Volume 9.1 fL (7.4-10.4); Monocytes # (auto) 0.46 K/uL (0.11-0.59); Monocytes % (auto) 5.2 %; Neutrophils # (auto) 4.74 K/uL (1.4-6.5); Neutrophils % (auto) 53.7 %; Platelet Count 229 K/uL (130-400); RDW Coefficient of Variation 13.3 % (11.5-14.5); RDW Standard Deviation 43.7 fL (36.4-46.3); White Blood Count 8.84 K/uL (4.8-10.8)
[2019-06-09] MEDS ORDERED: DEXAMETHASONE SOD INJ 4 MG/ML VIAL ONE (07:50)
[2019-06-09] MEDS ORDERED: LIDOCAINE HCL 2% 2 ML VIAL/AMP(20MG/ML) INFIL ONE (07:50)
[2019-06-09] MEDS ORDERED: PROPOFOL IV EMULSION 10 MG/ML 20 ML VIAL IV ONE (07:50)
[2019-06-09] MEDS ORDERED: ONDANSETRON INJ 2 MG/ML 2 ML VIAL ONE (07:50)
[2019-06-09] MEDS ORDERED: fentaNYL citrate 100 MCG/2 ML VIAL ONE (07:51)
[2019-06-09] MEDS ORDERED: MIDAZOLAM HCL 1 MG/ML 2ML VIAL ONE (07:51)
[2019-06-09] MEDS: FINASTERIDE 5 MG TAB PO SCH (07:59)
[2019-06-09] MEDS: POTASSIUM CHLORIDE 10 MEQ TABCR PO SCH (07:59)
[2019-06-09] MEDS: LORATADINE 10 MG TAB PO SCH (07:59)
[2019-06-09] MEDS: TAMSULOSIN HCL 0.4 MG CAP PO SCH (07:59)
[2019-06-09] MEDS: FAMOTIDINE 20 MG in SYRINGE 3 ML IV SCH (07:59)
[2019-06-09] MEDS: TOPIRAMATE 50 MG TAB PO SCH (07:59)
[2019-06-09] MEDS: CHOLECALCIFEROL 1,000 UNITS TAB PO SCH (08:00)
[2019-06-09] MEDS: DOXYCYCLINE HYCLATE 50 MG CAP PO SCH (08:00)
[2019-06-09 08:14] LABS: BUN Creatinine Ratio 15.7 (10-20); Creatinine Clr Calc Pharmacy 96.5 ml/min; Est GFR (African American) 138.6; Est GFR (Non-African American) 119.6; Potassium 4.3 mmol/L (3.5-5.1)
[2019-06-09] MEDS ORDERED: ATROPINE SULFATE 0.1 MG/ML 10ML SYR IV PRN (08:16)
[2019-06-09] MEDS ORDERED: ePHEDrine sulfate 50 MG/ML AMP IV PRN (08:16)
--- NOTE | 2019-06-09 08:16 | Anesthesiology Consultation ---
Date of Service June 09, 2019 Assessment & Plan (1) Encounter for pre-operative examination: Chart Review Chart Review: Acceptable Risk for Surgery and Patient NOT seen in Pre Admission Testing Consults Requested none History Surgery Operation Date: 06/09/19 09:00 Proposed Procedures p Cystoscopy, Right Ureteroscopy, Laser Lithotripsy Holmium, Stent Placement - Lon Gordillo MD Height/Weight Height: 5 ft Weight: 51.3 kg Allergies Allergy/AdvReac Type Severity Reaction Status Date / Time amoxicillin AdvReac Unknown Unverified 06/07/19 17:15 Medications Home Medications Medication Instructions Recorded Confirmed Last Taken levonorgestrel 20 mcg/24 hours (5 1 device IU DIRECTED ea 04/22/19 06/07/19 Unknown yrs) 52 mg intrauterine device loratadine 10 mg capsule 10 mg PO DAILY cap 04/22/19 06/07/19 Unknown topiramate 50 mg tablet 50 mg PO BID tab 04/22/19 06/07/19 Unknown biotin 10,000 mcg capsule 10,000 mcg PO DAILY cap 06/07/19 06/07/19 Unknown cholecalciferol (vitamin D3) 1,000 1,000 units PO DAILY 06/07/19 06/07/19 Unknown unit capsule doxycycline hyclate 50 mg capsule 50 mg PO BID 06/07/19 06/07/19 Unknown finasteride 5 mg tablet See Rx Instructions PO DAILY tab 06/07/19 06/07/19 Unknown potassium chloride ER 10 mEq 10 meq PO BID 06/07/19 06/07/19 Unknown tablet,extended release Active Medications Generic Name Dose Route Start Last Admin Trade Name Freq PRN Reason Stop Dose Admin Doxycycline Hyclate 50 mg 06/08/19 09:00 06/09/19 08:00 Vibramycin PO 06/18/19 08:59 Not Given BID NORRIS Finasteride 2.5 mg 06/08/19 09:00 06/09/19 07:59 Proscar PO 07/08/19 08:59 Not Given DAILY NORRIS Hydromorphone HCl 0.5 mg 06/07/19 21:34 06/09/19 02:04 Dilaudid IV 06/21/19 21:33 0.5 mg Q3H PRN Administration Pain Ceftriaxone Sodium 1,000 mg/ 60 mls @ 100 mls/hr 06/08/19 18:00 06/08/19 18:15 Dextrose IV 06/16/19 18:35 Infused Q24H NORRIS Infusion Protocol Sodium Chloride 1,000 mls @ 150 mls/hr 06/07/19 23:26 06/09/19 07:55 Nss 1000ml IV 07/07/19 23:25 0 mls/hr .Q6H40M NORRIS Infusion Famotidine 20 mg/ Syringe 5 mls @ 2.5 mls/min 06/08/19 12:00 06/09/19 07:59 IV 07/08/19 11:59 Not Given BID NORRIS Ketorolac Tromethamine 15 mg 06/08/19 11:01 06/08/19 12:01 Toradol IV 06/13/19 11:00 15 mg Q6H PRN Administration Pain Loratadine 10 mg 06/08/19 09:00 06/09/19 07:59 Claritin PO 07/08/19 08:59 Not Given DAILY NORRIS Potassium Chloride 10 meq 06/08/19 09:00 06/09/19 07:59 Klor-Con M10 PO 07/08/19 08:59 Not Given BID NORRIS Tamsulosin HCl 0.4 mg 06/08/19 09:00 06/09/19 07:59 Flomax PO 07/08/19 08:59 Not Given QAM NORRIS Topiramate 50 mg 06/08/19 09:00 06/09/19 07:59 Topamax PO 07/08/19 08:59 Not Given BID NORRIS Vitamin D 1,000 units 06/08/19 09:00 06/09/19 08:00 Vitamin D3 PO 07/08/19 08:59 Not Given DAILY NORRIS NPO Date Last Intake of Fluids: 06/08/19 Time Last Intake of Fluids: 23:30 Date Last Intake of Solids: 06/08/19 Time Last Intake of Solids: 21:00 Past Medical History Medical History Current every day smoker (Chronic) Kidney stones (Chronic) Reactive depression (situational) (Chronic) Migraine Past Surgical History Surgical History Hx of cholecystectomy Social History Smoking Status: Current every day smoker tobacco type: cigarettes Do You Dip or Chew Tobacco: No Hx Alcohol Use: No Hx Substance Use: No Physical Exam Vital Signs Last Vital Signs Temp 36.5 C 06/09/19 07:25 Pulse 58 L 06/09/19 07:25 Resp 16 06/09/19 07:25 BP 108/71 06/09/19 07:25 Pulse Ox 99 06/09/19 07:25 Testing Laboratory Results 06/09/19 06:45 06/09/19 06:45 Urine Color Yellow 06/07/19 18:03 Urine Appearance Cloudy (Clear) A 06/07/19 18:03 Urine pH 5.5 (4.5-7.5) 06/07/19 18:03 Ur Specific [place] 1.026 (1.000-1.030) 06/07/19 18:03 Urine Protein 1+ (Negative) H 06/07/19 18:03 Urine Glucose (UA) Negative (Negative) 06/07/19 18:03 Urine Ketones 1+ (Negative) H 06/07/19 18:03 Urine Nitrite Negative (Negative) 06/07/19 18:03 Ur Leukocyte Esterase 2+ (Negative) H 06/07/19 18:03 Urine WBC (Auto) >30 /hpf (0-5) H 06/07/19 18:03 Urine RBC (Auto) >30 /hpf (0-4) H 06/07/19 18:03 U Hyaline Cast (Auto) 1-5 /lpf (0-5) 06/07/19 18:03 U Epithel Cells (Auto) 20-30 /lpf (0-5) H 06/07/19 18:03 Urine Bacteria (Auto) Negative (Negative) 06/07/19 18:03 Urine RBC 10-30 /hpf (0-4) H 06/07/19 16:40 Urine WBC 10-30 /hpf (0-5) H 06/07/19 16:40 Ur Epithelial Cells 20-30 /lpf (0-5) H 06/07/19 16:40 06/07/19 16:40 Urine Culture - Preliminary Urine,Clean Catch No growth - Less than 1,000 colonies/mL, Final report to follow. 06/07/19 17:10 POC Ur Test NEG
--- NOTE | 2019-06-09 09:01 | Post Operative Brief Note ---
Immediate Post Op Note v1 Date of Surgery June 09, 2019 Pre & Post Diagnosis l Operation Date: 06/09/19 09:00 <No data on this case meets the specified criteria> left ureteral stone Procedure Operation Date: 06/09/19 09:00 <No data on this case meets the specified criteria> Cystoscopy, left ureteroscopy, laser lithotripsy, ureteral stone extraction, left ureteral stent placement Surgeon Lon Gordillo MD Underground Foreman none Estimated Blood Loss 0 Findings Consistent with Post-Op Diagnosis
--- NOTE | 2019-06-09 09:25 | Urology Progress Note ---
Date of Service June 09, 2019 Assessment & Plan (1) Kidney stones: Stone has been removed. OK to discharge home today from Urology point of view. She has long strings on her stent. These can be removed in 24-36 hours by the patient as she has done this before. Urine culture from 06/07/19 was negative. Rec sending home with 3 days of Bactrim or Cipro to cover when stent is removed. Can f/u with Urology in 3 mos to discuss stone prevention. (2) Obstructed, uropathy: Subjective The patient underwent cysto, left uscope, and laser litho with stent this morning. Tolerated well. No complications. The stone was found in the left distal ureter. Prior to surgery she did state that she was anxious to get home. Review of Systems Review of Systems: All systems reviewed & are unremarkable except as noted in HPI & below Physical Exam Constitutional: WD/WN, vitals as above Eyes: PERRL, conjunctivae normal, anicteric sclerae Respiratory: normal respiratory effort, lungs clear to auscultation Cardiovascular: RRR, no murmur, no edema Musculoskeletal: no cyanosis or clubbing, extremities motor strength 5/5 Skin: no rashes, warm and dry Psychiatric: A+Ox3, euthymic affect Genitourinary: no vaginal lesions, no adnexal mass Lymphatic: no cervical or axillary lymphadenopathy Results & Data Vital Signs (Past 12 Hours) Vital Signs Temp Pulse Resp BP Pulse Ox 06/09/19 07:25 36.5 C 58 L 16 108/71 99 06/08/19 23:12 36.4 C L 54 L 14 94/61 L 99
[2019-06-09] MEDS: fentaNYL citrate 100 MCG/2 ML VIAL IV PRN ×4 (09:42→10:13)
--- NOTE | 2019-06-09 10:05 | Anesthesiology Progress Note ---
Date of Service June 09, 2019 Anesthesia Post Procedure Vital Signs Vital Signs: Temp Pulse Pulse Resp BP Pulse Ox 06/09/19 10:00 52 L 13 108/67 100 06/09/19 09:50 64 14 115/71 100 06/09/19 09:40 37.1 C 55 L 15 110/70 100 06/09/19 09:30 53 L 16 103/68 100 06/09/19 09:20 50 L 16 95/68 L 100 06/09/19 09:11 36.4 C L 71 15 113/66 100 06/09/19 07:25 36.5 C 58 L 16 108/71 99 06/08/19 23:12 36.4 C L 54 L 14 94/61 L 99 06/08/19 15:23 36.8 C 56 L 16 103/73 100 Pain Intensity Left Flank: Pain Intensity: 5 Left Lower Abdomen: Pain Intensity: 5 Other: Pain Intensity: 5 Transfer of Care Handoff Completed per policy Notes Mental Status: alert / awake / arousable Patient Amnestic to Procedure: Yes Nausea / Vomiting: adequately controlled Pain: adequately controlled Airway Patency, RR, SpO2: stable & adequate BP & HR: stable & adequate Hydration State: stable & adequate Anesthetic Complications: no major complications apparent and Pt Satisfied with anesthetic care
--- NOTE | 2019-06-09 13:25 | Discharge Summary ---
Date of Service June 09, 2019 Admission HPI Per Admitting Provider Ms. Gutierrez is a 33yo with a Hx of recurrent kidney stones who presents to [facility] ED after being sent by her sql programmer Dr. Parnell emergently to be seen by urology. She states she had a kidney stone about May 25 when she presented [facility] and it was noted on CT. She was sent home with Vicodin, Tamsulosin, Keflex and in the hopes that she would pass it. She states she did not however, and instead of urinating more frequently on the Flomax like she usually would, she noticed that she was actually urinating less. Also noted hematuria over the weekend but no dysuria. Denies ever having fevers, chills, or night sweats. Of note, pt states this will be her 19th stone. States she has had 4 lithotripsies in the past and would like to avoid stents as she believes stents are more painful than having the kidney stone. States she had a stent the first time. PMHx: Recurrent kidney stones, Migraines, Acne on Back, undiagnosed recurrent diarrhea, environmental allergies, Hair loss. 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 1/4ppd smoker for about 13 years, no alcohol or recreational drug use. ED Course: Afebrile, nontachycardic, WBC>[id number], KUB:unremarkable, CT showing 8mm obstructing and 3mm nonobstructing stone with mild hydronephrosis, fluid in small bowel and colon. s/p IV morphine 2mgx1 , 15mg IV Toradolx1, 1 dose of Rocephin. Admission Exam Per Admitting Provider Constitutional: + thin Eyes: PERRL, conjunctivae normal, anicteric sclerae ENMT: external ear and nose normal, oropharynx normal Neck: normal visual inspection Respiratory: normal respiratory effort, lungs clear to auscultation Auscultation: + diminished lung sounds Cardiovascular: RRR, no murmur, no edema Heart Sounds: normal S1 and normal S2 Extremities: no calf tenderness and no edema Gastrointestinal (Abdomen): Inspection/Auscultation: abdomen normal to inspection Percussion/Palpation: + abdomen tender (in LLQ near groin); no guarding and no hepatosplenomegaly Skin: + rash (acne noted on back) and + hair thinning Neurologic: PERRL, EOMI, accommodation nl, no face palsy, no dysarthria Genitourinary: + CVA tenderness (on left) Principal Diagnosis Nephrolithiasis with Obstructive Uropathy Discharge Exam Constitutional + thin Respiratory normal respiratory effort, lungs clear to auscultation Cardiovascular RRR, no murmur, no edema Gastrointestinal (Abdomen) normal bowel sounds, soft, nontender, no hepatosplenomegaly Skin acne on back Psychiatric A+Ox3, euthymic affect Discharge Data Allergies Allergy/AdvReac Type Severity Reaction Status Date / Time amoxicillin AdvReac Unknown Unverified 06/07/19 17:15 Consultations 06/07/19 19:41 ED Decision to Admit Stat 06/07/19 21:34 Consult Urology Stat 06/09/19 10:54 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 Gutierrez is a 33yo female with a PMHx of recurrent calcium oxalate nephrolithiasis, migraines, seasonal allergies and undiagnosed recurrent diarrhea admitted for obstructive uropathy due to nephrolithiasis, now s/p lithotripsy and ready for d/c home. Obstructive Uropathy Nephrolithiasis - Pt's CT on admission showed obstructing 8mm calculus in the distal left ureter. - Initially conservative therapy was attempted with pain control, fluids, and watchful waiting for pass of stone. After no progress Urology took her for Cystoscopy and lithotripsy and removed the stone. Stent placed to be removed by the patient in 24-36 hours. - UCx negative for infection. Given Cipro BID for 3 days and a small prescription of Vicodin tablets PRN severe pain per Urology recs. - Pt to follow with Urology in 3 months. To follow with PCP within one week. Hypokalemia - Mildly decreased at 3.4 on arrival, repleted once and now on d/c is 4.3. - Continue home Potassium Chloride 20mEq BID daily. Hx of recurrent diarrhea - Pt states she had recent colonoscopy as part of workup. - States she has upcoming appointment to followup as an outpatient. - To followup with primary doctor and GI following discharge. Hx of Migraines - Continue home topiramate. No headaches this admission. Hx of environmental allergies - Continue home Loratidine. Hx of hair loss - Continue home Finasteride, Biotin. Hx of Acne - Continue home Doxycycline 50mg BID. Health maintenance - Continue home Vit D3. (2) Obstructed, uropathy: (3) Chronic diarrhea: (4) Migraine: (5) Hypokalemia: Total Time Total Time Spent Total Time Spent (In Minutes): 30 minutes Discharge Plan Discharge Items Patient Disposition: Home - Self-Care Reason For Visit: KIDNEY STONE, HYDRONEPHROSIS Discharge Diagnosis: Kidney Stone Discharge Goals: Decrease discomfort and Prevent disease Activity: Resume your previous activity Non-emergency contact: Primary Care Provider Call non-emergency contact if: you have any medication questions, your symptoms worsen and your temperature is above 100.5 Follow-up/Referrals: Lon Gordillo MD [Surgeon] - Zach Phan [Primary Care Provider] - Diet: Regular Addtl Provider Instructions: You were admitted to the hospital for abdominal pain and found to have a kidney stone. We tried giving you fluids and pain medicine and letting the stone pass by itself but when it did not Urology performed a procedure to open up that area where the stone was blocked so that it could pass. Right now you have a stent in place that can be removed in 24-36 hours as you have done in the past. We will send you home on three days of an antibiotic called Bactrim for you to take to prevent infection from the stent. That has been sent to [facility]. For pain you can take Tylenol at home, and we gave you a few Vicodin as needed in the event that your pain becomes too much. Make sure that you are drinking lots of water to help flush out your kidneys. You will get a call from hospital staff regarding scheduling you for appointments with the Urologist Dr. Gordillo in 3 months and your primary care doctor Dr. Phan within a week of discharge. Prescriptions: New ciprofloxacin HCl 250 mg tablet 250 mg PO BID 3 Days Qty: 6 RF: 0 hydrocodone-acetaminophen 5-325 mg tablet 1 tab PO TID Qty: 9 RF: 0 Continued loratadine 10 mg capsule 10 mg PO DAILY RF: 0 topiramate 50 mg tablet 50 mg PO BID RF: 0 levonorgestrel 20 mcg/24 hours (5 yrs) 52 mg intrauterine device 1 device IU DIRECTED RF: 0 finasteride 5 mg tablet See Patient Comments PO DAILY RF: 0 cholecalciferol (vitamin D3) 1,000 unit capsule 1,000 units PO DAILY RF: 0 biotin 10,000 mcg capsule 10,000 mcg PO DAILY RF: 0 doxycycline hyclate 50 mg capsule 50 mg PO BID RF: 0 potassium chloride 10 mEq tablet extended release 10 meq PO BID RF: 0 Stand-Alone Forms: [employer], [facility]/Other Patient Handouts: DVT Discharge Orders: Discharge Order (Routine); Ordered 06/09/19 Ordered By: Elisha Dejesus Admission Data Admit Date/Time: 06/07/19 21:31 Attending Provider: Ashley Schwartz Admit Provider: Key Scherer Primary Care Provider: Zach Phan Other Providers: Nikita Ritchie Thomas Service: Surgical Services Other Interventions: Discharge Summary Assessment (RN) Last Done: 06/09/19 14:34 DC Date/Time DO NOT enter until pt leaves facility: 06/09/19 16:45 Supervising Physician Co-Signing Physician Notes Resident Physician Supervision Note: I independently interviewed and examined the patient and verified the pena history and physical, reviewed labs and image studies, discussed the case with the resident Dr. Dejesus and agree with the findings and care plan. Resident Activity Tracking Resident Involvement: Resident Care Provided Care Provided: Adult Hospital Medicine
--- NOTE | 2019-06-09 13:46 | Operative Report ---
DATE OF OPERATION: 06/09/2019 SURGEON: Lon Gordillo MD EXTERMINATOR HELPER TERMITE: None. PREOPERATIVE DIAGNOSIS: Left ureteral calculus. POSTOPERATIVE DIAGNOSIS: Left ureteral calculus. PROCEDURE: Cystoscopy, left retrograde pyelogram, left ureteroscopy, laser lithotripsy of stone, basket extraction of stone, left ureteral stent placement. ANESTHESIA: General endotracheal. COMPLICATIONS: None. SPECIMENS: Ureteral stone. DRAINS: A 6-Argentine x 26 cm ureteral stent with long string. ESTIMATED BLOOD LOSS: Minimal. CONDITION: Stable. INDICATIONS: Miguelina is a 33-year-old female with a long history of renal calculi, recently presented with left-sided flank pain. CT scan showed a mid ureteral calculus. Her pain persisted despite medical expulsive therapy. She now presents for surgical removal of the stone. DESCRIPTION OF PROCEDURE: The patient was brought to the operative suite, positively identified, placed on the table in supine position. After the induction of general anesthesia, placed in dorsal lithotomy position. The genitalia were prepped and draped in a sterile fashion. Preop antibiotics were administered and a timeout was performed. A rigid cystoscope was passed through the urethra into the bladder. The urethra was normal. The bladder was unremarkable. I turned my attention toward the left ureteral orifice. This was intubated with an open ended catheter and retrograde pyelogram was performed showing a filling defect in the mid to distal ureter consistent with the stone seen on the previous CT scan. A sensor wire was passed up into the renal pelvis and a rigid ureteroscope was passed alongside this wire. The stone was encountered. Using a 270 micron holmium laser fiber, the stone was fragmented into multiple pieces, all of which were extracted using a Bacilio basket. I inspected the rest of the ureter. Once all stone fragments had been removed and I did not see any additional stone pieces. A final retrograde pyelogram was unremarkable. A 6-Argentine x 26 cm ureteral stent was then placed with a good curl seen proximally and distally. The strings were left long and taped to the lower abdomen. The bladder was drained. The patient tolerated the procedure well and was taken to the PACU in stable condition. I attest to the content of the Intraoperative Record and any orders documented therein. Any exception s are noted below.
--- NOTE | 2019-06-09 17:38 | Fluoroscopy Report ---
INTRAOPERATIVE RADIOGRAPHS CLINICAL HISTORY: Cystoscopy, left-sided laser lithotripsy, and left ureteral stent placement procedu re. Fluoroscopy time: 10 seconds. FINDINGS: 2 spot fluoroscopic views of the left abdomen are correlated with abdominal CT dated 06/07/20 19. There is contrast in the left renal collecting system indicating hydronephrosis. The images show the proximal and distal ends of a left ureteral stent in appropriate position. No calcifications are seen along the course of the stent. Cholecystectomy clips are identified in the right upper quadrant, and an intrauterine device is noted in the pelvis. IMPRESSION: Intraoperative images from a left ureteral stent placement as above. Electronically signed by: Preet Brantley M.D. 06/09/2019 5:37 PM
== END 2019-06-09 16:45 | disposition home or self-care (01) | DRG 661 ==
LOC: ED 16:04 → 3W 21:31 → SUATTDRO 21:31 → 3W 22:11